=== PATIENT | male | born 1970 | race Caucasian/White ===

== ENCOUNTER 2020-08-31 17:21 | Emergency (ER) | payer SELFPAY ==
[~2020-08-31] VITALS: Ht 167.6 cm; Wt 96.2 kg
[2020-08-31 17:25] VITALS: BP 116/68
[2020-08-31] MEDS ORDERED: methylPREDNISolone SS 125 MG in WATER STERILE 2 ML IM ONE (17:40)
[2020-08-31] MEDS ORDERED: FAMOTIDINE 20 MG TAB PO ONE (17:40)
[2020-08-31] MEDS ORDERED: WATER STERILE 10 ML MC ONE (17:53)
[2020-08-31] MEDS ORDERED: methylPREDNISolone SS 125 MG/2 ML VIAL ONE (17:53)
[2020-08-31] MEDS ORDERED: LORA10SG1 PO (18:07)
[2020-08-31] MEDS ORDERED: PRED20TA5 PO (18:07)
[2020-08-31] MEDS ORDERED: DIPH25TA53 PO (18:07)
[2020-08-31 18:21] VITALS: BP 116/68
== END 2020-08-31 18:21 | disposition home or self-care (01) ==
LOC: MED 17:21
DX: R21 Rash and other nonspecific skin eruption (principal); L29.9 Pruritus, unspecified; Z88.0 Allergy status to penicillin; Z88.2 Allergy status to sulfonamides; Z79.899 Other long term (current) drug therapy
CPT/HCPCS: 96372; 99283; J2930; Q0163